=== PATIENT | female | born 2000 | race Caucasian/White ===

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

== ENCOUNTER 2020-09-23 19:00 | Emergency (ER) | payer OTHER ==
[2020-09-23 19:21] VITALS: BP 121/76; PULSE 84; TEMP 98.9
[2020-09-23] MEDS ORDERED: IBUPROFEN 600 MG TABLET (FP) PO ONE (19:43)
== END 2020-09-23 19:59 | disposition home or self-care (01) ==
LOC: JERFT 19:00 → JER 19:00 → JERFT 19:59
DX: R09.89 Other specified symptoms and signs involving the circulatory and respiratory systems (principal)
CPT/HCPCS: 70360-TC-FY; 99283-25

== ENCOUNTER 2022-10-23 02:37 | Emergency (ER) | payer OTHER ==
[2022-10-23 02:59] VITALS: BP 131/90; PULSE 87; RESP 18; TEMP 98.3; BMI 32.9
[2022-10-23] MEDS ORDERED: KETOROLAC TROMETHAMINE 30 MG/1 ML VIAL IM ONE (03:37)
[2022-10-23] MEDS ORDERED: KETOROLAC TROMETHAMINE 30 MG/1 ML VIAL ONE (03:47)
== END 2022-10-23 04:39 | disposition home or self-care (01) ==
LOC: JER 02:37
PROC: 3E0233Z Introduction of Anti-inflammatory into Muscle, Percutaneous Approach (ICD-10-PCS; principal; 2022-10-23)
DX: M25.562 Pain in left knee (principal); W19.XXXA Unspecified fall, initial encounter
CPT/HCPCS: 73562-TC-LT-FY; 84703; 99284-25

== ENCOUNTER 2023-07-06 18:51 | Emergency (ER) | payer OTHER ==
[2023-07-06 18:59] VITALS: BP 109/72; BMI 33.1
[2023-07-06] MEDS ORDERED: ONDANSETRON 4 MG/2 ML VIAL ONE (19:33)
[2023-07-06] MEDS ORDERED: ACETAMINOPHEN INJECTION 100 ML IVPB ONE (19:33)
[2023-07-06] MEDS: ONDANSETRON 4 MG/2 ML VIAL IVPB ONE (19:48)
[2023-07-06] MEDS: SODIUM CHLORIDE 1,000 ML IV ONE (19:48)
[2023-07-06] MEDS: ACETAMINOPHEN 1000 MG/100 ML BAG IVPB ONE (19:48)
[2023-07-06 19:53] LABS: BASO % 0.2 % (0-2.0); EOS % 0.1 % (0-4.5); HEMATOCRIT 39.2 % (32.4-45.2); HEMOGLOBIN 13.2 GM/dL (10.7-15.3); LYMPH % 10.7 % (8-40); MCH 29.1 pg (25.7-33.7); MCHC 33.7 g/dl (32.0-36.0); MEAN CELL VOLUME 86.3 fl (80-96); MEAN PLT VOLUME 8.9 fl (7.5-11.1); MONO % 4.8 % (3.8-10.2); NEUT % 84.2 % (42.8-82.8); PLATELET COUNT 266 10^3/uL (134-434); RBC 4.55 M/mm3 (3.60-5.2); WHITE BLOOD COUNT 8.6 K/mm3 (4.0-10.0)
[2023-07-06] MEDS ORDERED: FAMOTIDINE 20 MG/50 ML IVPB 20 MG/50 ML MG IVPB ONE (20:06)
[2023-07-06 20:10] LABS: POTASSIUM 3.3 mmol/L (3.5-5.1)
[2023-07-06 20:12] LABS: CALCIUM 8.8 mg/dL (8.5-10.1)
[2023-07-06 20:13] LABS: ALBUMIN 3.5 g/dl (3.4-5.0); BLOOD UREA NITROGEN 14.2 mg/dL (7-18)
[2023-07-06 20:16] LABS: CREATININE 0.9 mg/dL (0.55-1.3)
[2023-07-06 20:18] LABS: BILIRUBIN,TOTAL 0.3 mg/dL (0.2-1); TOT PROT 7.8 g/dl (6.4-8.2)
[2023-07-06] MEDS: FAMOTIDINE 20 MG/50 ML IVPB 20 MG in PREMIX 50 IVPB ONE (20:21)
[2023-07-06 20:28] VITALS: TEMP 99.2
[2023-07-06 20:30] VITALS: PULSE 81; RESP 18
[2023-07-06] MEDS ORDERED: POTASSIUM CHLORIDE ORAL LIQUID 20 MEQ/15 ML ONE (22:25)
[2023-07-06] MEDS: POTASSIUM CHLORIDE ORAL LIQUID 20 MEQ/15 ML PO ONE (22:40)
== END 2023-07-06 22:43 | disposition home or self-care (01) ==
LOC: JER 18:51
PROC: 3E033GC Introduction of Other Therapeutic Substance into Peripheral Vein, Percutaneous Approach (ICD-10-PCS; principal; 2023-07-06)
PROC: 3E033NZ Introduction of Analgesics, Hypnotics, Sedatives into Peripheral Vein, Percutaneous Approach (ICD-10-PCS; 2023-07-06)
DX: R11.2 Nausea with vomiting, unspecified (principal); R19.7 Diarrhea, unspecified; R10.9 Unspecified abdominal pain; R51.9 Headache, unspecified; M79.10 Myalgia, unspecified site; K52.9 Noninfective gastroenteritis and colitis, unspecified; Z20.822 Contact with and (suspected) exposure to COVID-19
CPT/HCPCS: 0241U-QW; 36415; 80053; 84703; 85025; 93005; 93010; 99284-25; J0131